=== PATIENT | female | born 1975 | race Caucasian/White ===

== ENCOUNTER 2016-09-21 17:36 | Emergency (ER) | payer BC ==
[2016-09-21 17:42] VITALS: O2SAT 99
--- NOTE | 2016-09-21 17:53 | CPEKG ---
Heart Rate: 90 RR Interval: 667 P-R Interval: 156 QRSD Interval: 102 QT Interval: 364 QTC Interval: 446 P [place]: 68 QRS [place]: 5 T Wave [place]: 17 EKG Severity - NORMAL ECG - EKG Impression: SINUS RHYTHM Electronically Signed By: Zahra Burns 21-Sep-2016 18:42:13
--- NOTE | 2016-09-21 17:58 | EDPHY ---
H & P Time Seen by Provider: 09/21/16 17:46 HPI/ROS: CHIEF COMPLAINT: Abdominal pain HISTORY OF PRESENT ILLNESS: The patient is a 41 year old female presenting with abdominal pain that started last night. Last night the patient developed left upper quadrant pain that radiated to her back. The pain was intermittent throughout the night and would wake her from sleep. This morning the pain migrated to the epigastric region. It has remained constant all day and progressively worsened. She took Tums at 12pm today which improved her pain slightly. She has associated nausea, no emesis. The patient has a history of GERD and esophageal spasms for which she takes Nexium regularly. She states her pain feels differently in that it is higher than usual. Additionally she notes that she has been eating a lot of spicy [place] food and drinking more alcohol than usual. REVIEW OF SYSTEMS: A comprehensive 10 point review of systems is otherwise negative aside from elements mentioned in the history of present illness. Past Medical/Surgical History: IUD in place. GERD. Social History: . Occasional alcohol. Smoking Status: Never smoked Physical Exam: General Appearance: Alert, pleasant Eyes: Pupils equal and round, no conjunctival pallor or injection ENT, Mouth: Mucous membranes moist Neck: Normal inspection Respiratory: Lungs are clear to auscultation Cardiovascular: Regular rate and rhythm Gastrointestinal: Abdomen is soft, epigastric tenderness Neurological: A&O, nonfocal, normal gait Skin: Warm and dry, no rash Extremities: Nontender, no pedal edema Psychiatric: Mood and affect normal Constitutional: Initial Vital Signs Temperature (C) 37 C 09/21/16 17:39 Heart Rate 94 09/21/16 17:39 Respiratory Rate 17 09/21/16 17:39 Blood Pressure 124/99 H 09/21/16 17:39 O2 Sat (%) 99 09/21/16 17:39 O2 Delivery Mode Room Air Allergies/Adverse Reactions: No Known Allergies Allergy (Unverified 09/21/16 17:38) Home Medications: Medication Instructions Recorded Effexor 09/21/16 Nexium 09/21/16 ZYRTEC 09/21/16 Medical Decision Making - Diagnostics EKG Interpretation: The 12 lead EKG was interpreted by myself. See hard copy and/or "tracemaster" electronic copy for interpretation: Sinus rhythm. No ischemic changes. ED Course/Re-evaluation: This patient presents with epigastric pain. Stat EKG reveals no evidence of ischemia or dysrhythmia. Given her history of GERD and recent dietary changes, I gave the patient a GI cocktail. 1835: I reassessed the patient. Abdominal pain has resolved after Gi cocktail. Abdomen is soft and nontender. Laboratory tests are normal, including lipase and LFTs. She continues to feel better. She states that her GI symptoms often trigger panic attacks. I offered to give her Ativan 0.5 mg IV prior to discharge. She is in agreement with this and has Ativan tablets at home in case she needs them. She will follow up with her GI specialist tomorrow by phone. She will continue to take Nexium for now. Differential Diagnosis: Differential diagnosis includes though it is not limited to appendicitis, cholecystitis, diverticulitis, pyelonephritis, bowel perforation, small bowel obstruction. - Data Points Laboratory Results: Laboratory Results 09/21/16 18:00 09/21/16 18:00 09/21/16 09/21/16 09/21/16 18:00 18:00 18:00 WBC 7.95 10^3/uL 10^3/uL (3.80-9.50) RBC 5.02 10^6/uL 10^6/uL (4.18-5.33) Hgb 13.2 g/dL g/dL (12.6-16.3) Hct 39.0 % % (38.0-47.0) MCV 77.7 fL L fL (81.5-99.8) MCH 26.3 pg L pg (27.9-34.1) MCHC 33.8 g/dL g/dL (32.4-36.7) RDW 14.4 % % (11.5-15.2) Plt Count 215 10^3/uL 10^3/uL (150-400) MPV 11.3 fL fL (8.7-11.7) Neut % (Auto) 63.7 % % (39.3-74.2) Lymph % (Auto) 31.3 % % (15.0-45.0) [place] % (Auto) 3.6 % L % (4.5-13.0) Eos % (Auto) 0.4 % L % (0.6-7.6) Baso % (Auto) 0.6 % % (0.3-1.7) Nucleat RBC Rel Count 0.0 % % (0.0-0.2) Absolute Neuts (auto) 5.06 10^3/uL 10^3/uL (1.70-6.50) Absolute Lymphs (auto) 2.49 10^3/uL 10^3/uL (1.00-3.00) Absolute Monos (auto) 0.29 10^3/uL L 10^3/uL (0.30-0.80) Absolute Eos (auto) 0.03 10^3/uL 10^3/uL (0.03-0.40) Absolute Basos (auto) 0.05 10^3/uL 10^3/uL (0.02-0.10) Absolute Nucleated RBC 0.00 10^3/uL 10^3/uL (0-0.01) Immature Gran % 0.4 % % (0.0-1.1) Immature Gran # 0.03 10^3/uL 10^3/uL (0.00-0.10) Sodium 139 mEq/L mEq/L (134-144) Potassium 3.8 mEq/L mEq/L (3.5-5.2) Chloride 107 mEq/L mEq/L (97-110) Carbon Dioxide 21 mEq/l L mEq/l (22-31) Anion Gap 11 mEq/L mEq/L (8-16) BUN 11 mg/dL mg/dL (7-23) Creatinine 0.8 mg/dL mg/dL (0.6-1.0) Estimated GFR > 60 Glucose 97 mg/dL mg/dL (70-100) Calcium 10.2 mg/dL mg/dL (8.5-10.4) Total Bilirubin 1.0 mg/dL mg/dL (0.1-1.4) Conjugated Bilirubin 0.3 mg/dL mg/dL (0.0-0.5) Unconjugated Bilirubin 0.7 mg/dL mg/dL (0.0-1.1) AST 28 IU/L IU/L (14-46) ALT 30 IU/L IU/L (9-52) Alkaline Phosphatase 67 IU/L IU/L (38-126) Total Protein 7.7 g/dL g/dL (6.3-8.2) Albumin 4.6 g/dL g/dL (3.5-5.0) Lipase 165.0 IU/L IU/L (23-300) Medications Given: Discontinued Medications Hydrocodone Bitart/Acetaminophen ([place] 5/325mg Prepack#6) 1 btl TAKEHOME EDNOW ONE Stop: 09/21/16 19:25 Last Admin: 09/21/16 19:52 Dose: 1 btl Sodium Chloride (Ns) 1,000 mls @ 0 mls/hr IV ONCE ONE PRN Reason: Wide Open Stop: 09/21/16 18:12 Last Admin: 09/21/16 18:36 Dose: 1,000 mls Lorazepam (Ativan Injection) 0.5 mg IVP EDNOW ONE Stop: 09/21/16 19:30 Last Admin: 09/21/16 19:55 Dose: 0.5 mg Miscellaneous Medication (Gi Cocktail) 55 ml PO EDNOW ONE Stop: 09/21/16 18:12 Last Admin: 09/21/16 18:21 Dose: 55 ml Ondansetron HCl (Zofran Odt 4 Mg Prepack#2) 1 btl TAKEHOME EDNOW ONE Stop: 09/21/16 19:25 Last Admin: 09/21/16 19:54 Dose: 1 btl Departure - Departure Disposition: Home, Routine, Self-Care Clinical Impression: Gastritis Qualifiers: Gastritis type: unspecified gastritis Chronicity: acute Gastritis bleeding: without bleeding Qualified Code(s): K29.00 - Acute gastritis without bleeding Condition: Good Instructions: Hydrocodone/Acetaminophen (By mouth), Ondansetron (By mouth), Gastritis (ED) Additional Instructions: Continue taking Nexium. Take Mylanta 30 minutes before meals and before bedtime. Eat a bland diet. 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 For severe pain take Vicodin as prescribed. Take Zofran as directed for nausea/ vomiting. Referrals: Carlton Monterroso MD, FACG [Medical Doctor] - As per Instructions Report Scribed for: Zahra Burns Report Scribed by: Lindsay Kyle Date of Report: 09/21/16 Time of Report: 17:58 Physician Review and Approval Statement: 09/21/16 17:58 Portions of this note were transcribed by a medical technologist chemistry. I personally performed the history, physical exam, and medical decision-making; and confirmed the accuracy of the information in the transcribed note.
[2016-09-21] MEDS ORDERED: MAALOX/LIDO/HYOSC GI COCKTAIL 55 ML BOTTLE ONE (18:08)
[2016-09-21] MEDS ORDERED: NS 1,000 ML IV ONE (18:11)
[2016-09-21] MEDS ORDERED: MAALOX/LIDO/HYOSC GI COCKTAIL 55 ML BOTTLE PO ONE (18:11)
[2016-09-21 18:27] LABS: % IMMATURE GRANULYOCYTES 0.4 % (0.0-1.1); ABSOLUTE IMMATURE GRANULOCYTES 0.03 10^3/uL (0.00-0.10); ADD DIFF? NO; ADD MORPH? NO; ADD SCAN? NO; ATYPICAL LYMPHOCYTE FLAG 10 (0-99); FRAGMENT RBC FLAG 0 (0-99); HEMOGLOBIN 13.2 g/dL (12.6-16.3); LEFT SHIFT FLG 0 (0-99); LIPEMIA HEMOLYSIS FLAG 90 (0-99); MEAN CELL HEMOGLOBIN 26.3 pg (27.9-34.1); MEAN CELL HEMOGLOBIN CONCENTR. 33.8 g/dL (32.4-36.7); MEAN CELL VOLUME 77.7 fL (81.5-99.8); MEAN PLATELET VOLUME 11.3 fL (8.7-11.7); PLATELET CLUMPS FLAG 10 (0-99); PLATELET COUNT 215 10^3/uL (150-400); RED BLOOD CELL COUNT 5.02 10^6/uL (4.18-5.33); RED CELL DISTRIBUTION WIDTH 14.4 % (11.5-15.2)
[2016-09-21 18:37] LABS: ANION GAP 11 mEq/L (8-16); CALCIUM 10.2 mg/dL (8.5-10.4); CARBON DIOXIDE 21 mEq/l (22-31); CHLORIDE 107 mEq/L (97-110); CREATININE 0.8 mg/dL (0.6-1.0); GLOMERULAR FILTRATION RATE > 60; GLUCOSE 97 mg/dL (70-100); POTASSIUM 3.8 mEq/L (3.5-5.2); SODIUM 139 mEq/L (134-144)
[2016-09-21 19:16] LABS: ALBUMIN 4.6 g/dL (3.5-5.0); BILIRUBIN-CONJUGATED 0.3 mg/dL (0.0-0.5); BILIRUBIN-UNCONJUGATED 0.7 mg/dL (0.0-1.1); TOTAL PROTEIN 7.7 g/dL (6.3-8.2)
[2016-09-21] MEDS ORDERED: ONDANSETRON 4MG PREPACK#2 BTL TAKEHOME ONE (19:24)
[2016-09-21] MEDS ORDERED: HYDROCOD/APAP 5/325 PREPACK#6 BTL TAKEHOME ONE (19:24)
[2016-09-21] MEDS ORDERED: LORazepam 2 MG/ML INJ IVP ONE (19:29)
[2016-09-21 19:57] VITALS: BP 114/80; PULSE 68; RESP 16; TEMP 98.6
== END 2016-09-21 20:10 | disposition home or self-care (01) ==
DX: K29.00 Acute gastritis without bleeding (principal)
CPT/HCPCS: 96374